=== PATIENT | female | born 1970 | race Caucasian/White ===

== ENCOUNTER → 2023-11-19 06:31 | Outpatient (REF) | payer BC, SELFPAY ==
[2023-11-19 07:21] LABS: % Basophils 0.5 % (0-2); % Eosinophils 1.2 % (0-6); % Immature Granulocytes 0.3 % (0-0.5); % Lymphocytes 11.4 % (20.5-51.1); % Monocytes 6.1 % (1.7-9.3); % Neutrophils 80.5 % (42.2-75.2); Absolute Basophils 0.1 10^3/uL (0-0.2); Absolute Eosinophils 0.1 10^3/uL (0-0.7); Absolute Lymphocytes 1.2 10^3/uL (1.2-3.4); Absolute Monocytes 0.6 10^3/uL (0.1-0.6); Absolute Neutrophils 8.3 10^3/uL (1.4-6.5); Hematocrit 38.5 % (37.0-47.0); Hemoglobin 13.4 g/dL (12.0-16.0); Mean Corp Hgb Conc. 34.8 g/dL (33.0-37.0); Mean Corpuscular Hgb 32.9 pg (27.0-31.0); Mean Corpuscular Volume 94.6 fL (81.0-99.0); Mean Platelet Volume 11.2 fL (7.4-10.4); Nucleated Red Blood Cells % 0 %; Platelet Count 331 10^3/uL (130-400); Red Blood Cell Count 4.07 10^6/uL (4.20-5.40); Red Cell Dist. Width 13.2 % (11.5-14.5); White Blood Cell Count 10.3 10^3/uL (4.8-10.8)
[2023-11-19 07:56] LABS: ALT (SGPT) 23 U/L (0-35); AST (SGOT) 33 U/L (14-36); Albumin 4.3 g/dl (3.5-5.0); Alkaline Phosphatase 78 U/L (38-126); Blood Urea Nitrogen 13 mg/dl (7-17); Calcium 9.7 mg/dl (8.4-10.2); Carbon Dioxide 26 mmol/L (22-30); Chloride 103 mmol/L (98-107); Glucose 96 mg/dl (70-99); HDL Cholesterol 61 mg/dl; LDL Cholesterol, Calculated 81 mg/dl; Potassium 4.2 mmol/L (3.5-5.1); Sodium 138 mmol/L (135-145); Total Bilirubin 0.8 mg/dl (0.2-1.3); Total Cholesterol 157 mg/dl (50-199); Total Protein 7.1 g/dl (6.3-8.2); Triglyceride 76 mg/dl (10-149); Very Low Density Lipoprotein 15 mg/dl (0-30); eGFR > 60.00
== END ==
LOC: RAD 06:31
PROVIDERS: ATTENDING PHYSICIAN Surgery Vascular Surgery; FAMILY PHYSICIAN Family Medicine
DX: I65.23 Occlusion and stenosis of bilateral carotid arteries (principal); E78.00 Pure hypercholesterolemia, unspecified; Z00.00 Encounter for general adult medical examination without abnormal findings
CPT/HCPCS: 36415; 80053; 80061; 85025; 93880

== ENCOUNTER → 2024-01-10 08:41 | Outpatient (REF) | payer OTHER, SELFPAY | LOC: RAD 08:41 | PROVIDERS: ATTENDING PHYSICIAN Surgery Vascular Surgery; FAMILY PHYSICIAN Family Medicine | DX: I65.22 Occlusion and stenosis of left carotid artery (principal) | CPT/HCPCS: 70496; 70498; Q9967 ==

== ENCOUNTER 2024-03-24 06:14 | Inpatient (IN) | payer OTHER, SELFPAY ==
[2024-03-19 09:57] VITALS: BMI 26.3
[2024-03-19 10:49] LABS: % Basophils 1.1 % (0-2); % Eosinophils 3.8 % (0-6); % Immature Granulocytes 0.2 % (0-0.5); % Lymphocytes 40.3 % (20.5-51.1); % Monocytes 9.4 % (1.7-9.3); % Neutrophils 45.2 % (42.2-75.2); Absolute Basophils 0.1 10^3/uL (0-0.2); Absolute Eosinophils 0.3 10^3/uL (0-0.7); Absolute Lymphocytes 2.7 10^3/uL (1.2-3.4); Absolute Monocytes 0.6 10^3/uL (0.1-0.6); Hematocrit 37.2 % (37.0-47.0); Hemoglobin 12.8 g/dL (12.0-16.0); Mean Corp Hgb Conc. 34.4 g/dL (33.0-37.0); Mean Corpuscular Hgb 31.5 pg (27.0-31.0); Mean Corpuscular Volume 91.6 fL (81.0-99.0); Mean Platelet Volume 11.1 fL (7.4-10.4); Nucleated Red Blood Cells % 0 %; Platelet Count 382 10^3/uL (130-400); Red Blood Cell Count 4.06 10^6/uL (4.20-5.40); Red Cell Dist. Width 13.6 % (11.5-14.5); White Blood Cell Count 6.6 10^3/uL (4.8-10.8)
[2024-03-19 11:03] LABS: INR 0.96; PT 12.8 Sec (11.4-14.6)
[2024-03-19 11:04] LABS: APTT 25.8 Sec (23.4-35.0); Blood Urea Nitrogen 10 mg/dl (7-17); Calcium 9.7 mg/dl (8.4-10.2); Carbon Dioxide 27 mmol/L (22-30); Chloride 104 mmol/L (98-107); Estimated Creatinine Clearance 77 ml/min; Glucose 84 mg/dl (70-99); Potassium 4.7 mmol/L (3.5-5.1); Sodium 141 mmol/L (135-145); eGFR > 60.00
[2024-03-24] VITALS (21 sets, daily range): BP systolic 102–153; BP diastolic 73–93; BMI 24.8
--- NOTE | 2024-03-24 07:13 | HP.FOC2 ---
Focused History & Physical
Chief Complaint
HPI:
Chief Complaint: Asymptomatic left carotid stenosis
HPI / Indication for Planned Procedure: This is a 53 year old female patient with significant history for asymptomatic left carotid stenosis, who reports for scheduled procedure with Dr. Rich.
Relevant Past Medical History: Other (anxiety, hyperlipidema )
Relevant Social History: Tobacco Use (former history of tobacco use)
Relevant Family History: Negative
Relevant Past Surgical History: Negative
Review of Systems
Review of Pertinent Systems: All Systems Negative
Medication
See Medication form for detailed medications: Yes
Medication List (including Herbals & OTC):
Vitamin D3 1 tab PO DAILY 03/17/24
aspirin 81 mg chewable tablet 81 mg PO DAILY 03/17/24
atorvastatin 80 mg tablet 80 mg PO QPM 03/17/24
multivitamin 1 tab PO DAILY 03/17/24
Medications Reviewed: Yes
Allergies and Reactions
Patient has Allergies: No
Noted Allergies and Reactions:
Allergy/AdvReac Type Severity Reaction Status Date / Time
NKA - No Known Allergies Allergy Unknown Uncoded 03/17/24 09:57
Pertinent Physical Exam
All Other Systems: Negative
Head/Neck: Normal
Lungs: Normal (BL lungs CTA)
Heart: Normal (RRR)
Abdomen: Normal
Extremities: Normal
Neurological: Normal
Diagnosis / Assessment
Diagnosis: Stenosis of left carotid artery, asymptomatic.
Plan / Procedure
Plan: Will proceed with surgical plan of left common carotid artery cutdown on the LEFT with retrograde endovascular intervention on the proximal calcified common carotid artery disease.
Anesthesia/Sedation to be done by Anesthesia Provider: Yes
[2024-03-24] MEDS: BACTROBAN NASAL 1 GRAM NASAL (07:16)
[2024-03-24] MEDS: PERIDEX 0.12% ORAL RINSE 15 ML PO ×2 (07:18→07:19)
--- NOTE | 2024-03-24 07:38 | W.SUR.PREOP ---
Pre-Operative Surgical Note
-
I have examined this patient prior to the performance of the scheduled procedure.
The patient's condition is unchanged from the time of the current History and
Physical and the patient is able to undergo the scheduled procedure.
[2024-03-24 08:40] LABS: ACT-LR - POC 294 Seconds (116-155)
[2024-03-24 09:36] LABS: ACT-LR - POC 213 Seconds (116-155)
--- NOTE | 2024-03-24 09:42 | W.SUR.POST ---
Surgical Immediate Post Op
Note
Pre Op Diagnosis: Left common carotid artery stenosis
Post Op Diagnosis: Left common carotid artery stenosis
Procedure Performed: Left common carotid artery cutdown and exposure with retrograde shockwave lithotripsy and stent
Primary Surgeon: Kirt Rich III, MD
evaluation assistant: CAROLINE Cha
Anesthesia: General
Estimated Blood Loss: 20 ml
Fluids: See anesthesia flowsheet
Drains/Shunts: N/A
Specimens/Cultures: N/A
Doppler/Duplex/Angio (Y/N): Y
Complications: None
Operative Findings: Successful endovascular intervention to left common carotid artery
--- NOTE | 2024-03-24 10:15 | CON.INTV ---
Consultation
Consultation Request
Date/Time Consultation Requested: 03/24
Date/Time Consultation Performed: 03/24
Reason for Consultation: Critical care
Medical History
-
History of Present Illness:
History obtained from the chart, reviewing outpatient records and history from the patient. Patient is a 53-year-old female with hyperlipidemia, presents with stenosis of left carotid artery. This was being followed as an outpatient for over 7
years. Recently has worsened, become 90% occluded. Patient denies any outpatient symptoms, denies headaches, nausea, shortness of breath, chest pain, vision changes. Patient underwent left common carotid cutdown with retrograde lithotripsy and
stent placement. We are asked to help from critical care standpoint 03/24/2024
.
PMH: Hyperlipidemia, history of seasonal allergies, anxiety, history of breast biopsy, skin lesion/skin cancer
Past Medical History
Past Medical History: None (See above)
Past Surgical History: None ( see above)
Social History
Tobacco: Former Smoker (Less than 5-pack-year, quit 2000)
Alcohol: Occasional (Wine with dinner)
Drug: None
Personal:
Living: With Family
Employment: Employed (Works with [employer])
Environmental Exposures: Born in [place]
Family History
Family History: Other (Mother with hypertension, father with prostate cancer. Father also had kidney cancer. Sibling healthy, daughter healthy with cystic fibrosis. 's biological mother and patient's father with cystic fibrosis carrier
status)
Allergies / Home Medications
Allergies
Allergy/AdvReac Type Severity Reaction Status Date / Time
NKA - No Known Allergies Allergy Unknown Uncoded 03/24/24 07:22
Home Medications
�Medication �Instructions �Recorded �Confirmed �Last Taken �Type
Vitamin D3 1 tab PO DAILY 03/17/24 03/24/24 03/23/24 18:00 History
aspirin 81 mg chewable tablet 81 mg PO DAILY 03/17/24 03/24/24 03/23/24 18:00 History
atorvastatin 80 mg tablet 80 mg PO QPM 03/17/24 03/24/24 03/23/24 18:00 History
multivitamin 1 tab PO DAILY 03/17/24 03/24/24 03/23/24 18:00 History
Review of Systems
-
All other systems: Negative unless noted
Vitals / Labs / Diagnostic Testing
Vital Signs
Temp Pulse Resp BP Pulse Ox
97.8 F 94 19 153/83 98
03/24/24 06:31 03/24/24 06:31 03/24/24 06:31 03/24/24 06:31 03/24/24 06:31
Diagnostic Testing:
Physical Exam
-
HEENT: Normocephalic, Anicteric, Other (Left carotid incision intact) and Other (A-line right upper extremity)
Cardiovascular: S1/S2, Regular Rhythm, Murmur (n) and Rub (n)
Respiratory: Wheeze (n), Rales (n), Rhonchi (n) and Non-Labored Respirations
GI: Soft, Non Distended and Non Tender
Neurology: Awake, Alert and Other (Nonfocal neurological exam, tongue midline, cranial nerves grossly intact)
Skin: Good Color
General: Comfortable
Assessment
-
53-year-old female with severe left carotid stenosis status post left carotid cutdown, stent placement 03/24/2024
S/p left carotid cutdown, stent placement
Severe carotid stenosis, progressive
Mild hyperglycemia
Left subclavian beaded appearance/stenosis per CT angiogram 2023
Conditions present prior to admission
Suspected pulmonary AVM
Positive bubble study per echo 2018
Hyperlipidemia
Family history of cystic fibrosis
Patient, maternal father, paternal mother CF carriers
Daughter with cystic fibrosis
Former tobacco use, quit 2000
Plan/recommendations
At this time, patient appears to be comfortable
Left carotid incision intact
Cranial nerves grossly intact, nonfocal findings, moves all extremities
Tongue is midline
EKG unremarkable 03/19/2024
History of echocardiogram with [id number] shunt, positive bubble study noted 2018
Left subclavian stenosis per imaging
Moving forward
Continue with management per vascular surgery
close BP monitoring, A-line in place, Parameters per vascular surgery
Left upper extremity A-line in place
History of left subclavian artery stenosis noted per imaging
IV fluids
Follow neuroexam, presently nonfocal
Anticoagulation per vascular surgery, Xarelto 2.5 mg twice a day has been ordered, to start tonight
Reviewed with critical care nursing
Will follow
TCCT 31 min
--- NOTE | 2024-03-24 10:22 | OR.RPT ---
Operative Report
Operative Report
Date of Operation: 03/24/2024
Pre Op Diagnosis: High-grade calcified stenosis involving the left proximal and mid common carotid artery, asymptomatic
Post Op Diagnosis: High-grade calcified stenosis involving the left proximal and mid common carotid artery, asymptomatic
Procedure:
1.) cutdown and exposure of left common carotid artery for endovascular procedure
2.) retrograde intravascular lithotripsy of left common carotid artery (6 mm x 60 mm M5+ shockwave balloon)
3.) balloon angioplasty and stenting of left common carotid artery (overlapping [place] VBX stents-6 mm x 59 mm proximal; 6 mm x 39 mm distal)
4.) insert wire/needle into aorta from left common carotid artery access site
5.) left carotid arteriogram
Surgeon: Kirt Rich III, MD
Air And Water Tester: CAROLINE Cha
Anesthesia: General
Complications: None
Estimated Blood Loss: 20 cc
History and Indications for Procedure: 53-year-old female with high-grade stenosis involving the proximal and mid left common carotid artery. Based on the location of disease on cross-sectional imaging I felt the best strategy would be with
endovascular intervention from a retrograde left common carotid artery approach. The technical aspects of this procedure were discussed with her and her in detail. The benefits and rationale for this approach were discussed with her in
detail. Alternative interventions were discussed with them in detail. Operative risks were discussed with him in detail.
Procedure in Detail: Lu Baltazar was correctly identified and placed supine on the operating table. After adequate induction of anesthesia the left neck was extended and positioned. I used ultrasound guidance to visualize the common carotid
artery in the left neck. The length of disease that could be visualized with ultrasound was marked at the skin level. The distal extent of the carotid disease was marked at the skin level for proper incision planning. The left neck was prepped
and draped in the usual sterile fashion. She received preoperative antibiotics. A timeout procedure was performed with the nursing and anesthesia staff confirming the patient's identity as well as the nature and laterality of the procedure.
I made an incision over the left neck at the previous skin alexis. Electrocautery and sharp dissection were used to expose the left common carotid artery. Systemic heparin was administered at this point. At the site of exposure the common carotid
artery was soft. The vagus nerve was identified and protected. Proximal and distal control was obtained with vessel loops.
The left common carotid artery was then punctured under direct visualization retrograde towards the chest with a micropuncture needle. A microwire was carefully advanced retrograde under fluoroscopic guidance followed by the micro dilator and
sheath. A 6 [place] sheath was then carefully placed over the [place] wire. The common carotid artery access site was marked with a single metal clip and the adjacent soft tissue.
A retrograde carotid arteriogram was performed through the 6 [place] sheath which demonstrated diffuse long segment disease involving the proximal and mid common carotid artery. Scattered areas of calcification were identified consistent with the
preoperative CT angiogram. Calcified disease at the origin was also identified. At this point the screen was marked appropriately. A roadmap was set. The table was locked.
I exchanged out for a 0.014 wire. Due to the heavily calcified nature of the arterial disease and in an effort to modify the calcium to achieve maximum luminal gain with endovascular intervention I elected to proceed with intravascular lithotripsy.
The distal most vessel loop was secured. Test clamping was performed for a minute with no neuromonitoring changes identified. We then proceeded with the endovascular procedure. A 6 mm x 60 mm Shockwave balloon was placed across the proximal
aspect of the common carotid artery stenosis under roadmap guidance. The distal emitters were positioned across the origin of the left common carotid artery. Alternating rounds of lithotripsy pulse delivery at sub-nominal pressure and angioplasty
at nominal pressure was performed across the entire length of the common carotid artery stenosis, back to the sheath tip in the more distal common carotid artery. In between rounds of pulse delivery and angioplasty the balloon was deflated and
repositioned under roadmap guidance. All 300 pulses were delivered.
Following intravascular lithotripsy I then advanced a 6 mm x 59 mm [place] VBX stent under roadmap guidance and positioned this in the proximal common carotid artery with the end of the stent extending slightly into the aortic arch across the origin of
the common carotid artery. The stent was deployed in the desired location by inflating the balloon to nominal pressure. The balloon was deflated and removed over the wire. A 6 mm x 39 mm [place] VBX stent was then positioned as a more distal
extension, overlapping with the initial stent. The stent was positioned in the desired location under roadmap guidance and deployed by inflating the balloon to nominal pressure. The balloon was deflated over the wire. To ensure that we had
maximum stent expansion I then advanced a 7 mm angioplasty balloon across the mid and distal portions of the carotid stent and profiled the stents. A slight stent waist at the most severe portion of the carotid stenosis was identified and
subsequently profiled with a 6 mm x 18 mm NC balloon. This was taken to burst pressure with in the mid and distal portions of the stent and profiled nicely.
Following this the balloon was removed over the wire. The proximal and distal vessel loops were released inspection of the stents under fluoroscopy did not demonstrate any waist following balloon angioplasty. A completion arteriogram was performed
demonstrating widely patent common carotid artery stents with brisk flow and no residual stenosis identified. No waist was demonstrated. Flow was seen through the stents and into the distal [place] common carotid artery and more distal internal
carotid artery. No filling defects were identified.
The wire and sheath were removed. I confirmed under fluoroscopy that the proximal vessel loop was around the [place] common carotid artery and well distal to the end of the stent. The proximal and distal vessel loops were secured. I temporarily
released the proximal vessel loop and brisk pulsatile bleeding was identified from the puncture site. The vessel loop was resecured. The arteriotomy was repaired primarily with a 6-0 Prolene suture. The vessel loops were released. The puncture
site was hemostatic. There was an excellent pulse in the common carotid artery proximal and distal to the repair. An excellent quality Doppler signal was identified throughout the exposed segment of common carotid artery.
Satisfied with this result we concluded the procedure. The wound was irrigated with saline solution. The wound was then closed in layers and sterile dressings were applied.
She will from general anesthesia with no immediate complications, a grossly nonfocal peripheral neuro exam and was taken to the recovery room in good condition.
Attestation: I was present and responsible for the entire procedure
Signed:
Kirt Rich III, MD
[facility] V[facility] Surgery
[phone] (cell)
[2024-03-24 10:27] LABS: Hematocrit 34.5 % (37.0-47.0); Hemoglobin 12.3 g/dL (12.0-16.0); Mean Corp Hgb Conc. 35.7 g/dL (33.0-37.0); Mean Corpuscular Hgb 32.3 pg (27.0-31.0); Mean Corpuscular Volume 90.6 fL (81.0-99.0); Mean Platelet Volume 10.8 fL (7.4-10.4); Platelet Count 341 10^3/uL (130-400); Red Blood Cell Count 3.81 10^6/uL (4.20-5.40); Red Cell Dist. Width 13.4 % (11.5-14.5); White Blood Cell Count 7.5 10^3/uL (4.8-10.8)
[2024-03-24] MEDS: PLAVIX 300 MG PO (10:27)
[2024-03-24 10:54] LABS: Blood Urea Nitrogen 9 mg/dl (7-17); Calcium 8.2 mg/dl (8.4-10.2); Carbon Dioxide 22 mmol/L (22-30); Chloride 106 mmol/L (98-107); Estimated Creatinine Clearance 90 ml/min; Glucose 127 mg/dl (70-99); Potassium 4.1 mmol/L (3.5-5.1); Sodium 140 mmol/L (135-145); eGFR > 60.00
[2024-03-24] MEDS: NSS 1000 IV ×2 (10:56→20:07)
[2024-03-24 11:03] LABS: PT 14.3 Sec (11.4-14.6)
[2024-03-24] MEDS: TYLENOL 650 MG PO ×3 (11:33→20:08)
--- NOTE | 2024-03-24 11:40 | PTCARENOTE ---
Received pt into Rm [id number] via bed from PACU at 1055. Pt awake and talkative at time of arrival. Neuro check completed w/ MECHANICAL TEST TECHNICIAN and remains consistent w/ findings while in PACU. Incision to Lt neck noted, well approximated w/ surgical adhesive
present. Small area of ecchymosis noted distal to incision- per MECHANICAL TEST TECHNICIAN, site unchanged in appearance. Pt received on RA w/ Pox 92-95%. Denies SOB. Reports 'tickle' in throat and 'trying not to cough'. Warm tea provided to pt at her request. Pt
received w/ NS infusing at 80ml/hr. Rt radial [place] present- transduced, leveled and zero-balanced. Waveform WNL. Physical assessment completed as documented. Orientation to surroundings/plan of care completed. Questions answered. Tylenol 650mg PO
given at pt request for c/o Lt neck discomfort 08/31. Pt's and daughter to visit at bedside. Call stearns w/in pt reach and safe environment maintained.
[2024-03-24 11:53] LABS: APTT > 200 Sec (23.4-35.0)
[2024-03-24 13:49] LABS: Magnesium 1.9 mg/dl (1.6-2.3)
--- NOTE | 2024-03-24 14:56 | PTCARENOTE ---
Pt continues to rest quietly. No change in appearance of incision and remains neuro intact/unchanged. Reports 'slight' discomfort in Lt neck- declined offered pain med- ice pack to site. No changes from previous assessment findings.
[2024-03-24] MEDS: LIPITOR 80 MG PO (17:09)
--- NOTE | 2024-03-24 17:24 | PTCARENOTE ---
No changes in assessment findings or new complaints received. Continues to rest quietly in bed. Tylenol for 4/10 neck discomfort (see MAR). Using bedpan to void. at bedside
--- NOTE | 2024-03-24 20:00 | PTCARENOTE ---
rec`d pt at 1900 AAOx3. left neck incision from sx. open to air, surgi glue intact. small amount of ecchymosis below sx site. moves all 4 extremities. no loss of sensation. neuro check continued from previous shift. SR on monitor. goal maintained
for SBP between 100-165 per MD order. R radial A line POX 95-97%. room air. clear lungs. bedpan. urinated 800cc at chance of shift. NS @80 going in rt AC and left AC flushed and patent. prn pain meds given. ice pack on incision. call stearns in reach,
safe environment maintained. family at bedside.
[2024-03-24] MEDS: XARELTO 2.5 MG PO (20:06)
[2024-03-24] MEDS: ROXICODONE 5 MG PO (22:23)
[2024-03-25] VITALS (7 sets, daily range): BP systolic 95–113; BP diastolic 72–89; BMI 25.0
--- NOTE | 2024-03-25 | PTCARENOTE ---
pt reassessed. no changes in pt assessment. prn pain meds given for left neck discomfort. call stearns in reach.
[2024-03-25] MEDS: TYLENOL 650 MG PO ×2 (03:30→08:38)
[2024-03-25 04:02] LABS: Hematocrit 31.9 % (37.0-47.0); Hemoglobin 11.5 g/dL (12.0-16.0); Mean Corp Hgb Conc. 36.1 g/dL (33.0-37.0); Mean Corpuscular Hgb 32.2 pg (27.0-31.0); Mean Corpuscular Volume 89.4 fL (81.0-99.0); Mean Platelet Volume 10.6 fL (7.4-10.4); Platelet Count 329 10^3/uL (130-400); Red Blood Cell Count 3.57 10^6/uL (4.20-5.40); Red Cell Dist. Width 13.2 % (11.5-14.5); White Blood Cell Count 11.3 10^3/uL (4.8-10.8)
[2024-03-25 04:10] LABS: INR 1.11; PT 14.4 Sec (11.4-14.6)
[2024-03-25 04:11] LABS: APTT 26.4 Sec (23.4-35.0)
[2024-03-25 04:26] LABS: Blood Urea Nitrogen 10 mg/dl (7-17); Calcium 8.8 mg/dl (8.4-10.2); Carbon Dioxide 22 mmol/L (22-30); Chloride 109 mmol/L (98-107); Estimated Creatinine Clearance 90 ml/min; Glucose 112 mg/dl (70-99); Potassium 4.3 mmol/L (3.5-5.1); Sodium 140 mmol/L (135-145); eGFR > 60.00
--- NOTE | 2024-03-25 07:40 | W.PN.VS ---
Addendum entered and electronically signed by Misael Head MD 03/25/24 07:52:
Seen and examined with COMPOUND MIXER. Agree with findings as noted below. Left neck incision is clean dry and intact. No hematoma. Neurologically no focal deficits. Moves all extremities well. Plan/as discussed and noted below.
Original Note:
Today's Communication / Plan
-
Seen and assessed with Dr. Head
Assessment/Plan
-
POD #1 left carotid cutdown, retrograde IV L/stent to common carotid
Plan:
-DC A-line
-DC IV fluids
-P.o. medications
-Increase diet
-Out of bed/ambulate
-Likely DC later today
Subjective Data
-
Date of Service: March 25, 2024
Patient seen at bedside this a.m. with Dr. Head. Patient offers no complaints at this time. No events overnight. Neuro intact
Objective Data
-
Vital Signs
Temp Pulse Resp BP Pulse Ox
98.1 F 88 13 108/75 96
03/25/24 03:48 03/25/24 03:00 03/25/24 03:00 03/25/24 02:00 03/25/24 03:00
Intake and Output
03/24/24 03/25/24 03/26/24
06:59 06:59 06:59
Intake Total 3580 / 3580
Output Total 4000 / 4000
Balance -420 / -420
Intake:
Oral fluids 1880 / 1880
IV fluids (Total) 1700 / 1700
Normosal 100 / 100
Nss 1,000 ml @ 80 mls/hr IV . 1600 / 1600
[id number] Rx#:[id number]
Output:
Urine, Rich 800 / 800
Urine, Voided 3200 / 3200
Lab Results
03/25/24 03:39
03/25/24 03:39
Calcium 8.8 mg/dl (8.4-10.2) 03/25/24 03:39
Magnesium 1.9 mg/dl (1.6-2.3) 03/24/24 10:08
Physical Exam
-
AAOx3
No tachypnea on room air
No tachycardia
Abdomen soft
Left neck site clean, dry, intact, soft, no drainage
Moves all extremities and tongue is midline
--- NOTE | 2024-03-25 07:57 | W.PN.INTV ---
Today's Communication / Plan
Recommendations
Ambulate
anticoagulation per vascular surgery
Follow-up with vascular as outpatient
Disposition efforts
Assessment
-
53-year-old female with severe left carotid stenosis status post left carotid cutdown, stent placement 03/24/2024
S/p left carotid cutdown, stent placement
Severe carotid stenosis, progressive
Mild hyperglycemia
Left subclavian beaded appearance/stenosis per CT angiogram 2023
Conditions present prior to admission
Suspected pulmonary AVM
Positive bubble study per echo 2018
Hyperlipidemia
Family history of cystic fibrosis
Patient, maternal father, paternal mother CF carriers
Daughter with cystic fibrosis
Former tobacco use, quit 2000
Plan/recommendations
At this time, patient appears to be comfortable
Left carotid incision intact
Ambulating in the room without difficulty
Cranial nerves grossly intact, nonfocal findings, moves all extremities
EKG unremarkable 03/19/2024
History of echocardiogram with [id number] shunt, positive bubble study noted 2018
Left subclavian stenosis per imaging
Moving forward
Continue with management per vascular surgery
Anticoagulation, antiplatelet therapy per vascular surgery
History of left subclavian artery stenosis noted per imaging. Follow-up with vascular surgery as outpatient. Patient with minimal symptoms
Follow neuroexam, presently nonfocal
Anticoagulation per vascular surgery, Xarelto per vascular surgery
Reviewed with critical care nursing, family at bedside
Disposition efforts
Subjective Dataa
Subjective Data
Date of Service:
Date of Service: March 25, 2024
Subjective:
Patient is without complaints. Ambulating in the room without difficulty. Mild neck incision discomfort but denies headaches, nausea, shortness of breath, lightheadedness
Objective Data
Data Reviewed
Vital Signs / I&O / Oxygen:
Vital Signs
Temp Pulse Resp BP Pulse Ox
98.1 F 88 13 108/75 96
03/25/24 03:48 03/25/24 03:00 03/25/24 03:00 03/25/24 02:00 03/25/24 03:00
Intake and Output
03/24/24 03/25/24 03/26/24
06:59 06:59 06:59
Intake Total 3580 / 3580
Output Total 4000 / 4000
Balance -420 / -420
SaO2 96
Physical Exam
General: Comfortable and Other (Left neck incision intact)
HEENT: Normocephalic and Anicteric
Cardiovascular: S1-S2, Regular Rhythm, Murmur (n) and Rub (n)
Respiratory: Wheeze (n), Crackles (n) and Rhonchi (n)
GI: Soft, Non Distended and Non Tender
Neurology: Awake and Alert
Skin: Good Color
Labs/Micro/Reports
Lab Data
03/25/24 03:39
03/25/24 03:39
Laboratory Results
03/24/24 03/25/24
10:10 03:39
PT 14.3 14.4
INR 1.10 1.11
APTT > 200 H* 26.4
--- NOTE | 2024-03-25 08:05 | PTCARENOTE ---
No neuro changes. Her and daughter are at the bedside. Left radial arterial line discontinued as ordered by Dr. Head. Gauze dressing applied after hemostasis obtained secured with tegaderm. She was instructed to not push off that hand,wrist.
She was informed what to do if she starts bleeding from that site or if a hematoma develops. SHe was also instructed on wound care, to wash her hands if she needs to touch her incision, otherwise she was instructed to keep it clean and dry. Reviewed
S/S of on infection, worsening pain, swelling, rigors/fever, drainage yellow green or brown in color. She and her verbalized their understanding. IVF off. Lungs CTA, Left neck incision NOVA, with surgical glue intact. Stroke booklet provided
and specifically reviewed S/S of stroke and encouraged them to cut it out and place on the refrigerator. +BSx4, fair appetite. Safe environment maintained.
[2024-03-25] MEDS: THERAGRAN 1 TABLET PO (08:37)
[2024-03-25] MEDS: XARELTO 2.5 MG PO (08:37)
[2024-03-25] MEDS: PLAVIX 75 MG PO (08:38)
--- NOTE | 2024-03-25 10:05 | PTCARENOTE ---
Pt ambulated in the [place] with RN, her sister and her mother. She tolerated it well. HR 90's. Safe environment maintained.
--- NOTE | 2024-03-25 11:37 | W.[place]-PDMP ---
[place]-PD[place]
-
Checked the [place]- Prescription Drug Monitoring Program website, no red flags identified; safe to proceed with prescription.
--- NOTE | 2024-03-25 11:37 | W.DS.TRANS ---
DC Summary - Purchasing Buyer
-
Discharge Instructions:
Discharge Diagnosis/Procedures Left common carotid stent placement
Diet No restrictions
Activity No strenuous activity
Driving Restrictions Not until seen by your Dr
Bathing Restrictions OK to Shower
Instructions:
Stand-Alone Forms: DC Instr - Vascular OR
Changes to Home Medications: Yes
Discharge Medications:
DC Medications w/original date entered in [employer]
Vitamin D3 1 tab PO DAILY Supplement 03/17/24
atorvastatin 80 mg tablet 80 mg PO QPM High Cholesterol 03/17/24
multivitamin 1 tab PO DAILY Supplement 03/17/24
clopidogrel 75 mg tablet 75 mg PO DAILY #90 tabs 03/25/24
oxycodone 5 mg tablet 5 mg PO Q4HPRN PRN moderate pain #3 tabs 03/25/24
rivaroxaban 2.5 mg tablet (Xarelto) 2.5 mg PO BID #120 tabs 03/25/24
Home Medication Changes
Stopped:
aspirin 81mg PO daily
Added:
clopidogrel 75 mg tablet 75 mg PO DAILY #90 tabs 03/25/24
oxycodone 5 mg tablet 5 mg PO Q4HPRN PRN moderate pain #3 tabs 03/25/24
rivaroxaban 2.5 mg tablet (Xarelto) 2.5 mg PO BID #120 tabs 03/25/24
Pending Results: No
--- NOTE | 2024-03-25 11:56 | CM ---
Patient seen bedside with , initial assessment completed. Patient resides with her spouse in a single story home, two steps to enter. Patient is independent with ADLs/IADLs, denies use of DME, denies VN or SNF history. Patient confirms PCP
Ilsa Givens, [facility] in [place], confirms prescription coverage. Patient denies food, housing/utility, transportation insecurities at home. Patient denies any needs upon discharge. CM will continue to follow for all discharge planning
needs.
Plan; home with family, no needs.
--- NOTE | 2024-03-25 12:12 | PTCARENOTE ---
Reviewed discharge instructions. All questions answered. She will eat lunch here then dress.
== END 2024-03-25 13:12 | disposition home or self-care (01) | DRG 36 ==
LOC: ICU 06:14
PROVIDERS: Nurse Practitioner; ADMITTING PHYSICIAN Surgery Vascular Surgery; CONSULT PHYSICIAN Internal Medicine Critical Care Medicine; FAMILY PHYSICIAN Family Medicine
PROC: 037 Upper Arteries, Dilation (ICD-10-PCS; 2024-03-24)
DX: I65.22 Occlusion and stenosis of left carotid artery (principal); E78.5 Hyperlipidemia, unspecified; Z87.891 Personal history of nicotine dependence
CPT/HCPCS: 36415; 37215; 71045; 71046; 80048; 83735; 85025; 85027; 85610; 85730; 86850; 86900; 86901; 87070; 93005; C1725; C1769; C1894; Q9967

== ENCOUNTER → 2024-05-15 14:31 | Outpatient (REF) | payer OTHER, SELFPAY | LOC: RAD 14:31 | PROVIDERS: ATTENDING PHYSICIAN Physician Assistant; FAMILY PHYSICIAN Family Medicine | DX: I65.22 Occlusion and stenosis of left carotid artery (principal); I77.1 Stricture of artery | CPT/HCPCS: 93880; 93923 ==

== ENCOUNTER → 2024-11-20 15:32 | Outpatient (REF) | payer OTHER, SELFPAY | LOC: RAD 15:32 | PROVIDERS: ATTENDING PHYSICIAN Surgery Vascular Surgery; FAMILY PHYSICIAN Family Medicine | DX: I65.23 Occlusion and stenosis of bilateral carotid arteries (principal) | CPT/HCPCS: 93880 ==

== ENCOUNTER → 2025-01-05 12:51 | Outpatient (REF) | payer OTHER, SELFPAY | LOC: RAD 12:51 | PROVIDERS: ATTENDING PHYSICIAN Surgery Vascular Surgery; FAMILY PHYSICIAN Family Medicine | DX: I65.23 Occlusion and stenosis of bilateral carotid arteries (principal) | CPT/HCPCS: 70496; 70498; Q9967 ==

== ENCOUNTER → 2025-07-09 11:31 | Outpatient (REF) | payer OTHER, SELFPAY | LOC: RAD 11:31 | PROVIDERS: ATTENDING PHYSICIAN Surgery Vascular Surgery; FAMILY PHYSICIAN Family Medicine | DX: I65.23 Occlusion and stenosis of bilateral carotid arteries (principal) | CPT/HCPCS: 93880 ==